=== PATIENT | male | born 1995 | race African-American/Black ===

== ENCOUNTER 2019-07-17 14:05 | Emergency (ER) | payer BC, MEDICAID ==
[~2019-07-17] VITALS: Ht 182.9 cm; Wt 113.0 kg
[2019-07-17] MEDS ORDERED: ONDANSETRON 4MG ODT PO ONE (14:45)
[2019-07-17] MEDS ORDERED: KETOROLAC 60MG/2ML VIAL IM ONE (14:45)
[2019-07-17] MEDS ORDERED: CYCLOBENZAPRINE 10MG TABLET PO ONE (14:45)
[2019-07-17] MEDS ORDERED: MORPHINE SULFATE 10 MG/ML CPJ IM ONE (14:45)
[2019-07-17 16:51] VITALS: BP 145/67
== END 2019-07-17 16:53 | disposition home or self-care (01) ==
LOC: ER 14:05
DX: M54.5 Low back pain (principal); R26.2 Difficulty in walking, not elsewhere classified; R03.0 Elevated blood-pressure reading, without diagnosis of hypertension
CPT/HCPCS: 96372; 99284; J1885; J2270; Q0162